=== PATIENT | male | born 1990 | race Caucasian/White ===

== ENCOUNTER → 2017-04-14 | Outpatient (CLI) | payer BC, OTHER ==
[2017-04-14 09:53] LABS: Bilirubin, Delta 0.2 mg/dL (0.0-0.2); Total Bilirubin 0.9 mg/dL (0.2-1.3); Total Protein 6.5 g/dL (6.3-8.2)
== END | disposition home or self-care (01) ==
LOC: LABWHC1 09:13
PROVIDERS: ATTEND Internal Medicine
DX: M31.30 Wegener's granulomatosis without renal involvement (principal); Z51.81 Encounter for therapeutic drug level monitoring; Z92.21 Personal history of antineoplastic chemotherapy
CPT/HCPCS: 36415; 80076

== ENCOUNTER → 2018-06-06 | Outpatient (CLI) | payer BC ==
[2018-06-06 17:24] LABS: Basophils % (A) 0 %; Eosinophils # (A) 0.2 k/uL (0-0.7); Eosinophils % (A) 3 %; HGB 15.9 gm/dL (13.0-17.5); Lymphocytes # (A) 1.9 k/uL (1.0-4.8); Lymphocytes % (A) 27 %; MCH 33.2 pg (25.0-35.0); MCHC 34.6 g/dL (31.0-37.0); MCV 95.9 fL (80.0-100.0); Mean Platelet Volume 6.2; Monocytes # (A) 0.5 k/uL (0-1.0); Monocytes % (A) 7 %; Neutrophils # (A) 4.2 k/uL (1.3-7.7); Neutrophils % (A) 61 %; Platelet Count 323 k/uL (150-450); RDW 13.5 % (11.5-15.5); WBC 6.9 k/uL (3.8-10.6)
[2018-06-07 05:22] LABS: Albumin 4.8 g/dL (3.80-4.90); Calcium 9.6 mg/dL (8.7-10.3); Globulin 1.2 g/dL (2.1-3.7); Potassium 4.1 mmol/L (3.5-5.5); Total Bilirubin 0.6 mg/dL (0.2-1.2)
== END ==
LOC: LABWHC1 16:54 → EDSTATUS 16:57
PROVIDERS: ATTEND Physician Assistant
DX: R74.8 Abnormal levels of other serum enzymes (principal)
CPT/HCPCS: 36415; 80053; 85025

== ENCOUNTER → 2018-07-11 | Outpatient (CLI) | payer BC ==
[2018-07-11 15:52] LABS: INR 0.9 (<1.2)
[2018-07-11 15:56] LABS: Basophils # (A) 0.1 k/uL (0-0.2); Basophils % (A) 1 %; Eosinophils # (A) 0.4 k/uL (0-0.7); Eosinophils % (A) 5 %; HCT 44.3 % (39.0-53.0); HGB 15.5 gm/dL (13.0-17.5); Lymphocytes # (A) 1.6 k/uL (1.0-4.8); Lymphocytes % (A) 21 %; MCH 32.9 pg (25.0-35.0); MCHC 34.9 g/dL (31.0-37.0); MCV 94.1 fL (80.0-100.0); Mean Platelet Volume 6.3; Monocytes # (A) 0.5 k/uL (0-1.0); Monocytes % (A) 7 %; Neutrophils # (A) 4.7 k/uL (1.3-7.7); Neutrophils % (A) 64 %; Platelet Count 357 k/uL (150-450); RBC 4.71 m/uL (4.30-5.90); RDW 13.1 % (11.5-15.5); WBC 7.4 k/uL (3.8-10.6)
[2018-07-12 03:24] LABS: Albumin 4.7 g/dL (3.80-4.90); Albumin/Globulin Ratio 4.27 (1.20-2.10); Anion Gap 11.4 mmol/L (4.00-12.00); Calcium 9.5 mg/dL (8.7-10.3); Carbon Dioxide 23.6 mmol/L (21.6-31.8); Globulin 1.1 g/dL (1.6-3.3); Potassium 3.9 mmol/L (3.5-5.5); Total Bilirubin 0.6 mg/dL (0.3-1.2); Total Protein 5.8 g/dL (6.2-8.2)
== END | disposition home or self-care (01) ==
LOC: LABWHC1 15:13
PROVIDERS: ATTEND Internal Medicine
DX: R79.89 Other specified abnormal findings of blood chemistry (principal)
CPT/HCPCS: 36415; 80053; 85025; 85610

== ENCOUNTER → 2020-07-02 | Outpatient (CLI) | payer BC ==
[2020-07-02 10:14] LABS: Basophils # (A) 0.1 k/uL (0-0.2); Basophils % (A) 1 %; Eosinophils # (A) 0.3 k/uL (0-0.7); Eosinophils % (A) 4 %; HCT 46.9 % (39.0-53.0); HGB 16.2 gm/dL (13.0-17.5); Lymphocytes # (A) 1.8 k/uL (1.0-4.8); Lymphocytes % (A) 31 %; MCH 31.8 pg (25.0-35.0); MCHC 34.6 g/dL (31.0-37.0); MCV 91.8 fL (80.0-100.0); Mean Platelet Volume 6.5; Monocytes # (A) 0.5 k/uL (0-1.0); Monocytes % (A) 8 %; Neutrophils % (A) 52 %; Platelet Count 252 k/uL (150-450); RBC 5.11 m/uL (4.30-5.90); RDW 12.7 % (11.5-15.5); WBC 5.7 k/uL (3.8-10.6)
[2020-07-02 21:39] LABS: Hemoglobin A1C 5.3 % (4.0-6.0)
[2020-07-03 02:38] LABS: African American GFR (CKD) 105.3 (60.0-200.0); Albumin 4.5 g/dL (3.80-4.90); Albumin/Globulin Ratio 2.14 (1.60-3.17); Anion Gap 17.1 mmol/L (4.00-12.00); BUN/Creat Ratio 21.82 Ratio (12.00-20.00); Calcium 9.5 mg/dL (8.7-10.3); Carbon Dioxide 18.9 mmol/L (21.6-31.8); Chol/HDL Ratio 4.25; Globulin 2.1 g/dL (1.6-3.3); LDL Cholesterol,Calculated 105.6 mg/dL (0.0-131.0); Non-African American GFR(CKD) 90.9 (60.0-200.0); Potassium 3.9 mmol/L (3.5-5.5); Total Bilirubin 0.4 mg/dL (0.2-1.2); Total Protein 6.6 g/dL (6.2-8.2); VLDL Calculation 73.4 mg/dL (5.00-40.00)
== END | disposition home or self-care (01) ==
LOC: LABWHC1 09:19
PROVIDERS: ATTEND Family Medicine
DX: Z00.00 Encounter for general adult medical examination without abnormal findings (principal); E29.1 Testicular hypofunction
CPT/HCPCS: 36415; 80053; 80061; 82040; 83036; 84270; 84403; 84443; 85025

== ENCOUNTER → 2020-07-21 | Outpatient (CLI) | payer BC ==
--- NOTE | 2020-07-21 08:38 | US ---
EXAMINATION TYPE: US abdomen complete DATE OF EXAM: 07/21/2020 COMPARISON: NONE CLINICAL HISTORY: 29-year-old male R74.8 Elevated liver enzymes. Abnormal labs, no pain TECHNIQUE: Multiple sonographic images of the abdomen are obtained. FINDINGS: EXAM MEASUREMENTS: Liver Length: 19.5 cm Gallbladder Wall: 0.2 cm CBD: 0.4 cm Spleen: 12.0 cm Right Kidney: 11.3 x 5.7 x 5.8 cm Left Kidney: 11.5 x 5.01 x 5.6 cm Pancreas: Tail obscured by overlying bowel gas. Remaining portions of the pancreas show no gross abn ormality. Liver: Enlarged, echogenic, and mildly attenuating. Focal fatty sparing seen adjacent to GB. Gallbladder: Mobile echogenic foci seen measuring up to 1.5 cm. No wall thickening, hydropic change, or surrounding fluid. Evidence for sonographic Mccoy's sign: neg CBD: wnl Spleen: wnl Kidneys: No hydronephrosis. Upper IVC: wnl Abd Aorta: Mid and distal portion obscured by overlying bowel gas IMPRESSION: 1. Hepatomegaly (19.5 cm) with moderate hepatic steatosis. Correlate with LFTs, lipid profile, and pa tient risk factors. 2. Cholelithiasis with mobile calculi measuring up to 1.5 cm. 3. No biliary ductal dilatation.
== END | disposition home or self-care (01) ==
LOC: RADUSWWP 07:09
PROVIDERS: ATTEND Family Medicine
DX: K80.20 Calculus of gallbladder without cholecystitis without obstruction (principal); K76.0 Fatty (change of) liver, not elsewhere classified
CPT/HCPCS: 76700

== ENCOUNTER → 2020-08-15 | Outpatient (CLI) | payer BC ==
[~2020-08-15] MED LIST: ACETAMINOPHEN TAB 325 MG TAB PO NR; SODIUM CHLORIDE 0.9% 500 ML 500 ML in EMPTY BAG 1 BAG IV PRN; diphenhydrAMINE 25 MG CAP PO NR; methylPREDNISolone SOD SUCCI 125 MG/2 ML VIAL IVP NR; riTUXimab 1,000 MG in SODIUM CHLORIDE 0.9% 500 ML 500 ML IV NR
[2020-08-15 09:35] VITALS: RESP 16; TEMP 97.8
[2020-08-15 11:34] VITALS: BP 124/79; PULSE 81
== END | disposition home or self-care (01) ==
LOC: PROCWHC3 09:01
PROVIDERS: ATTEND Internal Medicine Rheumatology
DX: M31.30 Wegener's granulomatosis without renal involvement (principal)
CPT/HCPCS: 96375; 96413; 96415; J2930; J9312

== ENCOUNTER → 2021-02-23 | Outpatient (CLI) | payer BC ==
[2021-02-24 00:32] LABS: ALT 247 U/L (10-49); AST 147 U/L (14-35); Albumin/Globulin Ratio 2.04 (1.60-3.17); Alkaline Phosphatase 94 U/L (41-126); Bilirubin, Conjugated <0.20 mg/dL (0.20-0.40); Globulin 2.3 g/dL (1.6-3.3); Total Bilirubin 0.5 mg/dL (0.3-1.2)
== END | disposition home or self-care (01) ==
LOC: LABWHC1 11:53
PROVIDERS: ATTEND Physician Assistant
DX: R79.89 Other specified abnormal findings of blood chemistry (principal); Z79.899 Other long term (current) drug therapy
CPT/HCPCS: 36415; 80076

== ENCOUNTER → 2021-10-01 | Outpatient (CLI) | payer BC ==
--- NOTE | 2021-10-01 16:19 | CT ---
EXAMINATION TYPE: CT hip RT wo con, CT hip LT wo con DATE OF EXAM: 10/01/2021 COMPARISON: No radiographic correlation available. HISTORY: 31-year-old male M25.551, bilateral hip pain TECHNIQUE: Contiguous axial scanning of the both hips without IV contrast. Coronal and sagittal recon structions performed. 3-D reconstructions generated on a dedicated workstation. CT DLP: 2387.8 mGycm Automated exposure control for dose reduction was used. FINDINGS: There is mild degenerative spurring at both hips with relative preservation of hip joint space time. Slight superior acetabular retroversion on both sides on axial images. No significant hip joint effusion on either side. No acute fracture, subluxation, dislocation. No significant soft tissue abnormality seen. No abnormal fluid collection or lymphadenopathy seen in the pelvis. By CT, the hamstrings and rectus femoris origins as well as the gluteal insertions show no gross abno rmality. IMPRESSION: MILD EARLY DEGENERATIVE SPURRING AT BOTH HIPS. 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 CORRELATE WITH PHYSICA L EXAM TESTING. NO ACUTE OSSEOUS ABNORMALITY SEEN.
[2021-10-01 22:53] LABS: HCT 51.1 % (39.6-50.0); HGB 17.7 g/dL (13.0-17.0); MCH 30.9 pg (27.0-32.0); MCHC 34.6 g/dL (32.0-37.0); MCV 89.2 fL (80.0-97.0); Mean Platelet Volume 8.8 fL (9.5-12.2); NRBC Per 100 WBC 0 /100 WBCS (0.0-0.0); Platelet Count 505 X 10*3/uL (140-440); RBC 5.73 X 10*6/uL (4.40-5.60); RDW 12.4 % (11.5-14.5); WBC 18.92 X 10*3/uL (4.50-10.00)
[2021-10-01 22:55] LABS: ALT 207 U/L (10-49); AST 113 U/L (14-35); African American GFR (CKD) 115.1 (60.0-200.0); Albumin 4.1 g/dL (3.8-4.9); Albumin/Globulin Ratio 1.77 (1.60-3.17); Alkaline Phosphatase 78 U/L (41-126); BUN/Creat Ratio 32.28 Ratio (12.00-20.00); Blood Urea Nitrogen 32.6 mg/dL (9.0-27.0); C Reactive Protein <0.30 mg/dL (0.00-0.80); Calcium 9.1 mg/dL (8.7-10.3); Carbon Dioxide 23.4 mmol/L (20.0-27.5); Chloride 100 mmol/L (96-109); Globulin 2.3 g/dL (1.6-3.3); Glucose 72 mg/dL (70-110); Non-African American GFR(CKD) 99.4 (60.0-200.0); Potassium 4.1 mmol/L (3.5-5.5); Sodium 139 mmol/L (135-145); Total Protein 6.4 g/dL (6.2-8.2)
[2021-10-02 00:05] LABS: Basophils # (A) 0.14 X 10*3/uL (0.00-0.10); Basophils % (A) 0.7 %; Eosinophils # (A) 0.14 X 10*3/uL (0.04-0.35); Eosinophils % (A) 0.7 %; Immature Grans, Automated 4.2 %; Lymphocytes # (A) 4.22 X 10*3/uL (0.90-5.00); Lymphocytes % (A) 22.3 %; Monocytes # (A) 1.71 X 10*3/uL (0.20-1.00); Neutrophils # (A) 11.91 X 10*3/uL (1.80-7.70); Neutrophils % (A) 63.1 %; RBC Morphology NORMAL
[2021-10-02 01:13] LABS: Erythrocyte Sedimentation Rate 12 mm/Hr (0-15)
[2021-10-02 13:43] LABS: C-ANCA <1:20 Titer (<1:20)
== END | disposition home or self-care (01) ==
LOC: RADCTMAIN 15:00
PROVIDERS: ATTEND Family Medicine
DX: M25.752 Osteophyte, left hip (principal); M25.751 Osteophyte, right hip; M25.852 Other specified joint disorders, left hip; M25.851 Other specified joint disorders, right hip
CPT/HCPCS: 80053; 85025; 85652; 86038; 86140; 86255

== ENCOUNTER → 2021-10-23 | Outpatient (CLI) | payer BC ==
--- NOTE | 2021-10-23 08:49 | CT ---
EXAMINATION TYPE: CT abdomen wo con DATE OF EXAM: 10/23/2021 COMPARISON: Ultrasound 07/21/2020 HISTORY: elevated liver enzymes CT DLP: 809 mGycm Automated exposure control for dose reduction was used. TECHNIQUE: Helical acquisition of images was performed from the lung bases through the top of iliac crest to include entire abdomen. CONTRAST: Performed without Oral Contrast and without IV contrast. FINDINGS: Lack of intravenous contrast could compromise sensitivity. Small umbilical hernia contains fat LUNG BASES: No significant abnormality is appreciated. LIVER/GB: Liver shows low attenuation likely due to hepatic steatosis, dependent high attenuation wit hin the gallbladder consistent with stones, some focal fatty sparing suggested adjacent to the gallbl adder. Liver is enlarged. PANCREAS: No significant abnormality is seen. SPLEEN: No significant abnormality is seen. ADRENALS: No significant abnormality is seen. KIDNEYS: No significant abnormality is seen. BOWEL: No significant abnormality is seen. LYMPH NODES: No significan abnormality is appreciated. OSSEOUS STRUCTURES: No significant abnormality is seen. FREE AIR: No Free Air visible ASCITES: None visible. RETROPERITONEAL ADENOPATHY: No Retroperitoneal Adenopathy visible. OTHER: IMPRESSION: HEPATIC STEATOSIS. CHOLELITHIASIS. HEPATOMEGALY.
== END | disposition home or self-care (01) ==
LOC: RADCTMAIN 07:07
PROVIDERS: ATTEND Family Medicine
DX: K76.0 Fatty (change of) liver, not elsewhere classified (principal); K80.20 Calculus of gallbladder without cholecystitis without obstruction; R16.0 Hepatomegaly, not elsewhere classified
CPT/HCPCS: 74150